=== PATIENT | female | born 1980 | race African-American/Black ===

== ENCOUNTER 2017-01-02 10:46 | Emergency (ER) | payer OTHER ==
[2017-01-02 10:27] LABS: INFLUENZA A NEG (NEG); INFLUENZA B NEG (NEG)
[~2017-01-02 10:46] MED LIST: ERYTHROMYCIN O3.5 G1 OD
== END 2017-01-02 10:56 | disposition home or self-care (01) ==
LOC: CED 10:46
PROVIDERS: Physician Assistant
DX: B34.9 Viral infection, unspecified (principal); J45.909 Unspecified asthma, uncomplicated; F17.210 Nicotine dependence, cigarettes, uncomplicated
CPT/HCPCS: 87651; 87804; 94640; 99283

== ENCOUNTER 2017-03-01 13:27 | Emergency (ER) | payer OTHER ==
[2017-03-01 12:41] LABS: HEMATOCRIT 40.9 % (35.0-45.0); HEMOGLOBIN 13.7 gm/dL (12.0-16.0); MEAN CELL VOLUME 97.1 FL (83-96); MEAN CORPUSCULAR HEMOGLOBIN 32.4 PG (28-34); MEAN CORPUSCULAR HGB CONC 33.4 g/dL (30-36); MEAN PLATELET VOLUME 7.3 FL (6.5-11.5); RED BLOOD COUNT 4.21 X10e (3.90-5.30); RED CELL DISTRIBUTION WIDTH 15.3 % (11.0-15.5); WHITE BLOOD COUNT 8.3 X10e3 (4.0-10.5)
[2017-03-01 13:06] LABS: CALCIUM SERUM 9.3 mg/dL (8.4-10.2); CREATININE SERUM 0.8 mg/dL (0.6-1.4); GLOM FILT RATE Estimated 110.8 mL/min (>60); POTASSIUM 3.4 mmol/L (3.5-5.1)
[2017-03-01 15:33] LABS: AMPHETAMINE POS (NEG); BARBITURATES NEG (NEG); BENZODIAZEPINES POS (NEG); COCAINE POS (NEG); MARIJUANA POS (NEG); OPIATES NEG (NEG); TRICYCLIC ANTIDEPRESSANTS NEG (NEG); U METHADONE NEG (NEG)
== END 2017-03-01 16:55 ==
LOC: CED 13:27
PROVIDERS: Emergency Medicine
DX: F14.10 Cocaine abuse, uncomplicated (principal); R45.851 Suicidal ideations
CPT/HCPCS: 36415; 80048; 80307; 84703; 85027; 96360; 99284

== ENCOUNTER 2017-03-01 14:00 | Inpatient (IN) | payer OTHER ==
--- NOTE | ~2017-03-01 | PA ---
Unit #: [id number] #: [id number] [facility]: [facility] [id number] [facility] [place] [address] [id number] I MR#: [id number] NAME: EDWIN OLIVA ROOM: P183 Age: 36 Sex: F Admission Date: 03/01/2017 : 1980 Date of Assessment: 03/01/2017 Attending Physician: Noel Barlow M.D. Admitting Physician: Noel Barlow M.D. Primary Care Physician: [facility]ana PSYCHIATRIC ASSESSMENT DATE OF SERVICE 03/01/2017. IDENTIFYING DATA Ms. Oliva is a 36-year-old, single, female, who is a resident of [place], [place] and was self-referred to the hospital on a voluntary basis. CHIEF COMPLAINT "I'm depressed and I'm using cocaine." HISTORY OF PRESENT ILLNESS Ms. Oliva is a 35-year-old, female, who was self-referred to the hospital and upon presentation, reports that she has been engaging in cocaine binge for the last 8 days and reports cocaine abuse leading to suicidal ideations and increasing depression, and the patient stated that she hopes the next line of cocaine will kill her and reports that she has a history of self-injurious behavior in the past and currently has been decompensated. She reports poor social support system being homeless and having financial stressors. The patient also reports increasing depression, anxiety, feelings of hopelessness and helplessness, and suicidal ideations and as such, recommendation for inpatient level of care for safety and stabilization was made. SUBSTANCE ABUSE HISTORY The patient reports history of experimentation with cannabis, but cocaine has been her drug of choice. She reports that she has been in an 8-day binge. PAST PSYCHIATRIC HISTORY The patient has had a history of inpatient psychiatric and chemical dependency treatment at [facility] in the past, and review of the medical records indicate that she was supposed to be on psychotropic medication, but has been noncompliant with medications and as such, has been decompensating. PAST MEDICAL HISTORY No acute or chronic medical illnesses. ALLERGIES No known medication allergies. PERSONAL AND SOCIAL HISTORY Unit #: [id number] #: [id number] Patient: EDWIN OLIVA A 36-year-old female, who reports that she is single, unemployed, and lives by herself and has poor social support system. MENTAL STATUS EXAMINATION Young female, who was casually dressed with fair personal hygiene, appears to be in no acute distress or discomfort. She was awake and alert on interaction with intact orientation to time, place, and person. Her mood was anxious and depressed with a congruent affect. Her speech was slow and goal directed. She reports having suicidal ideation, but denies any homicidal ideations, and also denies any auditory or visual hallucinations. Her insight and judgment remain significantly impaired. DIAGNOSTIC IMPRESSION Psychiatric: Major depressive disorder, recurrent, moderate, without psychotic features; cocaine dependence, moderate. Medical: None. Stressors: Moderate psychosocial stressors. TREATMENT PLAN 1. The patient has presented with a history of substance abuse and mood disorder, and has been decompensating and will need inpatient hospitalization for detoxification, safety, and stabilization. We will start her back on her home medications. We will adjust the medications and monitor response. 2. Supportive therapy was provided to the patient. 3. Safe, structured, and nourishing environment will be provided. ESTIMATED LENGTH OF STAY 4 to 5 days. ABILITY TO HELP SELF Limited. WILLINGNESS TO HELP SELF The patient appears to be willing to help self. STRENGTHS 1. Communicative. 2. Cooperative. PROBLEMS 1. Chronic dysphoric symptoms. 2. Chronic chemical dependency. 3. Poor social support system. DISCHARGE CRITERIA This will be contingent upon the patient's ability to go through detox without having any significant withdrawal symptoms as well as her ability to stay safe to herself, particularly after discharge from the hospital. Dictated by... Noel Barlow M.D. [facility]/tim Unit #: [id number] #: [id number] Patient: EDWIN OLIVA TD: 03/02/2017 07:04 JOB #: [id number] PSYCHIATRIC ASSESSMENT Page 1 of 1 X Noel Barlow MD PSYCHIATRIC ASSESSMENT
--- NOTE | ~2017-03-01 | PN ---
Unit #: [id number] #: [id number] Patient: EDWIN OLIVA [id number] [facility] [address] [place] [address] [id number] MR#: [id number] NAME: EDWIN OLIVA ROOM: [facility] Age: 36 Sex: F Admission Date: 03/01/2017 : 1980 Attending Physician: Noel Barlow M.D. Admitting Physician: Noel Barlow M.D. Primary Care Physician: [facility] Giovana ABBASI PROGRESS NOTES DATE 03/02/2017 DISCUSSION The patient is a 36-year-old female who was seen today and chart was reviewed and case was discussed with the staff. She has been anxious, withdrawn, depressed and seclusive to herself and in some distress and discomfort. Meanwhile, she has been cooperative with treatment recommendations and has been taking medications and tolerating them fairly well with no reported side effects. MENTAL STATUS EXAMINATION Young female who was casually dressed with fair personal hygiene and appears to be in no acute distress or discomfort. She was awake and alert on interaction with intact orientation. Her mood was anxious and depressed with congruent affect. She denies any current suicidal or homicidal ideations and also denies any auditory or visual hallucinations. Her insight and judgement remains slightly impaired. TREATMENT PLAN 1. Will continue on current medications and treatment protocol. Will monitor her response and make further adjustments as needed. 2. Will continue to follow up. Dictated by... Elinor Mckeon/brittany TD: 03/02/2017 23:16 JOB #: [id number] Unit #: [id number] #: [id number] Patient: EDWIN OLIVA PROGRESS NOTES Page 1 of 1 X Noel Barlow MD X PROGRESS NOTE
--- NOTE | ~2017-03-01 | HP ---
Unit #: [id number] #: [id number] Patient: EDWIN OLIVA [id number] [place] [address] [id number] I MR#: [id number] NAME: EDWIN OLIVA ROOM: 83 Age: 36 Sex: F Admission Date: 03/01/2017 : 1980 Attending Physician: Noel Barlow M.D. Admitting Physician: Noel Barlow M.D. Primary Care Physician: [facility] Giovana HISTORY AND PHYSICAL HISTORY OF PRESENT ILLNESS Edwin is a 36 year old admitted to [facility] because of her drug use. She uses cocaine. PAST MEDICAL HISTORY Long history of illicit substance abuse to include cocaine. PAST SURGICAL HISTORY Nothing reported. ALLERGIES No known drug allergies. SOCIAL HISTORY Smokes, drinks, alcohol, on occasion. Admits to a history of illicit substance abuse to include cocaine. FAMILY HISTORY Medically noncontributory. REVIEW OF SYSTEMS CONSTITUTIONAL: No fever or chills. HEENT: Denies any sore throat, ear pain or runny nose. CARDIOVASCULAR: Denies chest pain, irregular heart rhythm or palpitations. CHEST: Denies shortness of breath or cough. No hemoptysis. GASTROINTESTINAL: Denies nausea, vomiting, diarrhea or chronic constipation. ENDOCRINE: Denies history of increased thirst or urination. No recent significant weight loss or gain. GENITOURINARY: Denies dysuria, frequency, or hematuria. SKIN: Denies any rashes. HEMATOLOGIC: Denies history of increased bleeding or bruising. MUSCULOSKELETAL: Denies any hot, swollen joints. No generalized muscle pain. NEUROLOGIC: Denies problems with vision or speech. No frequent, severe headaches. No numbness, tingling or weakness in any extremities. Denies loss of bladder or bowel control. CURRENT MEDICATIONS 1. Seroquel 300 mg q.h.s. 2. Neurontin 300 mg b.i.d. 3. Vistaril 25 mg b.i.d. 4. Milk of Magnesia p.r.n. Unit #: [id number] #: [id number] Patient: EDWIN OLIVA 5. Maalox p.r.n. 6. Tylenol p.r.n. 7. Nicotine patch 14 mg q. day. PHYSICAL EXAMINATION GENERAL: Alert, well nourished. No apparent distress. VITAL SIGNS: Blood pressure 118/74, heart rate 52, respirations 16, and temperature 98.6. WEIGHT: 100. HEIGHT: 5 feet 3 inches. SKIN: Warm and dry without rash or lesion. HEENT: Normocephalic. TMs not viewed. Oral and nasal passages clear. Conjunctivae clear. PERRLA. EOMs intact. NECK: Supple without lymphadenopathy or thyromegaly. HEART: Regular rate and rhythm without murmur. LUNGS: Clear. ABDOMEN: Soft, nontender. : Not done. EXTREMITIES: No evidence of cyanosis, clubbing or edema. Moves all without focal deficit. NEUROLOGICAL: Grossly within normal limits. Cranial Nerves: II: Visual may are intact. III, IV AND : Extraocular movements are intact. Pupils are equal, round and reactive to light. V: Facial sensation is grossly normal. VII: Facial movements and expression are normal. VIII: Auditory acuity grossly intact. IX, X: Uvula is midline. Phonation is normal. XI: Patient shrugs shoulders and turns head normally. XII: Tongue protrudes in the midline. Sensory and Motor Function: Sensory and motor sensation is grossly normal. Motor: moves all extremities well. Coordination: Gait is normal. Deep Tendon Reflexes: Intact. IMPRESSION Psychiatric admission. RECOMMENDATIONS PSYCHIATRIC: Per psychiatrist. MEDICAL: I see no contraindication to participate in this facility's activities. MEDICAL PROGNOSIS Good. MEDICAL CONDITION Stable. Dictated by... Sun Loco P.A.-C. for Elinor Blum/marcelo TD: 03/02/2017 08:56 JOB #: [id number] Unit #: [id number] #: [id number] Patient: EDWIN OLIVA HISTORY AND PHYSICAL Page 1 of 1 X Sun Loco HISTORY AND PHYSICAL
--- NOTE | ~2017-03-01 | DS ---
Unit #: [id number] #: [id number] [facility] [id number] [facility] [address] [place] [address] [id number] MR#: [id number] NAME: EDWIN OLIVA ROOM: [facility] Age: 36 Sex: F Admission Date: 03/01/2017 : 1980 Discharge Date: 03/05/2017 Attending Physician: Noel Barlow M.D. Primary Care Physician: [facility] [place] DISCHARGE SUMMARY IDENTIFYING DATA Ms. Oliva is a 36-year-old female who is a resident of [place], [place] and was self-referred to the hospital. DISCHARGE DIAGNOSES Psychiatric: Major depressive disorder, recurrent, moderate, without psychotic features. Cocaine dependence, moderate. Medical: None. Stressors: Moderate psychosocial stressors. HISTORY OF PRESENT ILLNESS Please see initial psychiatric evaluation for details. PAST PSYCHIATRIC HISTORY Please see initial psychiatric evaluation for details. PAST MEDICAL HISTORY Please see initial psychiatric evaluation for details. HOSPITAL COURSE The patient was admitted to the adult chemical dependency unit at [facility] and was oriented to the hospital environment. Routine p.r.n. medications were initiated, and she was started on the detox protocol and was closely monitored. She was taking the medications regularly and was tolerating them fairly well and was able to show a decent therapeutic response and was willing to continue treatment on an outpatient basis. DISCHARGE MEDICATION Seroquel 300 mg at bedtime. DISCHARGE CONDITION Stable. PROGNOSIS Fair. Dictated by... Noel Barlow M.D. [facility]/modl Unit #: [id number] #: [id number] Patient: EDWIN OLIVA TD: 03/05/2017 07:34 JOB #: [id number] DISCHARGE SUMMARY Page 1 of 1 X Noel Barlow MD X DISCHARGE SUMMARY
--- NOTE | ~2017-03-01 | PN ---
Unit #: [id number] #: [id number] Patient: EDWIN OLIVA [id number] [facility] [address] [place] [address] [id number] I MR#: [id number] NAME: EDWIN OLIVA ROOM: [facility] Age: 36 Sex: F Admission Date: 03/01/2017 : 1980 Attending Physician: Noel Barlow M.D. Admitting Physician: Noel Barlow M.D. Primary Care Physician: [facility] Giovana DURANT NOTES DATE OF SERVICE 03/03/2017 DISCUSSION Ms. Oliva is a 36-year-old female with mood disorder who was seen today. Chart was reviewed and case was discussed with the staff. She has been anxious, withdrawn, and rather seclusive to herself. Meanwhile, she has been cooperative with the treatment recommendations and has been taking the medications and tolerating them fairly well with no reported side effects. MENTAL STATUS EXAMINATION Young female who is casually dressed with fair personal hygiene, appears to be in no acute distress or discomfort. The patient was awake and alert with impaired attention and concentration. Her mood is anxious with a congruent affect. She denies any suicidal or homicidal ideations. Her insight and judgment remain slightly impaired. TREATMENT PLAN 1. We will continue her on her current medications and treatment protocol. We will monitor her response to the medications and make further adjustments as needed. 2. We will continue to follow up. Dictated by... Noel Barlow M.D. [facility]/rachelg TD: 03/03/2017 11:24 JOB #: [id number] Unit #: [id number] #: [id number] Patient: EDWIN OLIVA PROGRESS NOTES Page 1 of 1 X Noel Barlow MD X PROGRESS NOTE
--- NOTE | ~2017-03-01 | PN ---
Unit #: [id number] #: [id number] Patient: EDWIN AVAOLS [id number] [facility] [address] [place] [address] [id number] MR#: [id number] NAME: EDWIN AVALOS ROOM: [facility] Age: 36 Sex: F Admission Date: 03/01/2017 : 1980 Attending Physician: Noel Barlow M.D. Admitting Physician: Noel Barlow M.D. Primary Care Physician: [facility] Giovana DURANT NOTES DATE 03/04/2017 DISCUSSION Ms. Avalos is a 36-year-old female who was seen today and chart was reviewed and case was discussed with the staff. She has been anxious, withdrawn and rather seclusive to herself. Meanwhile, she has been cooperative with treatment recommendations as she has been taking the medications and tolerating them fairly well with no reported side effects. MENTAL STATUS EXAMINATION Young female who was casually dressed with fair personal hygiene, appears to be in no acute distress or discomfort. She was awake and alert on interaction with intact orientation. Her mood was anxious and depressed with congruent affect. She denies any suicidal or homicidal ideations. Also, denies any auditory or visual hallucinations. Her insight and judgement remains slightly impaired. TREATMENT PLAN 1. We will continue her on her current medications and treatment protocol. We will monitor her response to the medication and make further adjustments as needed. 2. We will continue to follow up. Dictated by... Elinor Mckeon/zarina TD: 03/04/2017 22:29 JOB #: [id number] Unit #: [id number] #: [id number] Patient: EDWIN AVALOS PROGRESS NOTES Page 1 of 1 X Noel Barlow MD PROGRESS NOTE
--- NOTE | ~2017-03-01 | A ---
[facility] Nutrition Therapy DATE: 03/03/17 Patient: EDWIN OLIVA Physician: TERRA Address: [address] Room/Bed: [address], Zip: [place] [address] Admit Date: 03/01/17 Date of : [birth year] Height: 5 3 Weight: 99 45.3592 NUTRITIONAL ASSESSMENT: REASON: LOW BMI (17.7) PATIENT ADMITTED FOR COCAINE ABUSE AND SI PMH: NONE Anthropometrics: HT: 5'3", WT: 100#, BMI: 17.7 Labs: 03/03/17- ALB: 3.4, ALL OTHER NUTRITIONAL LABS WNL Meds: SEROQUEL, NEURONTIN, VISTARIL Assessment: PATIENT IS A 36 Y/O FEMALE ADMITTED FOR COCAINE ABUSE AND SI. PATIENT IS CURRENTLY ON DISABILITY, HOMELESS, SMOKES 1/2 PPD, AND HAS A HX OF COCAINE AND MARIJUANA USE. IT IS NOTED THAT PATIENT WENT ON A COCAINE BINGE FOR 8 DAYS PRIOR TO ADMIT, AND HAD NOT BEEN EATING OR SLEEPING. PATIENT HAS A HX OF INPATIENT PSYCH AND CHEMICAL DEPENDENCY TREATMENT, AND HAS BEEN NON-COMPLIANT WITH MEDICATIONS. PER NEEDS ASSESSMENT PATIENT STATED A POOR APPETITE AND HAD NOT BEEN SLEEPING. NURSING REPORTED THAT PATIENT REFUSED BREAKFAST YESTERDAY D/T BEING UNHAPPY WITH HER PORTION SIZE. SHE STATED SHE WAS DETOXING AND HAD INCREASED IRRITABILITY. HER PORTION SIZES HAVE SINCE BEEN INCREASED AND SHE HAS HAD GOOD PO INTAKES. PATIENT'S TOX SCREEN WAS POSITIVE FOR BENZOS, COCAINE, AMPHETAMINES, AND MARIJUANA. PATIENT'S CURRENT PSYCH MEDS MAY CAUSE AN INCREASE IN WEIGHT AND APPETITE. PATIENT IS ON A REGULAR DIET WITH LARGE PORTION ENTREES. THERE ARE NO SKIN OR GI ISSUES NOTED ATT. Dx: INADEQUATE NUTRIENT INTAKE R/T CURRENT CONDITION, DRUG USE AEB NOT EATING PRIOR TO ADMIT, LOW BMI Intervention: REGULAR DIET, LARGE PORTIONS, MEDS PER MD, PSYCH Monitoring, Evaluation and Goals: 1. ADEQUATE PO INTAKES >50% OF MEALS 2. PREVENT, CORRECT MICRO/MACRO NUTRIENT DEFICIENCIES 3. WEIGHT; PROMOTE A STEADY WEIGHT GAIN TOWARDS A HEALTHY BMI (19-25), AND PREVENT WEIGHT LOSS MONITOR: WEIGHTS, LABS, PO/FLUID INTAKES Recommendations: [facility] Nutrition Therapy DATE: 03/03/17 Patient: EDWIN OLIVA Physician: TERRA Address: [address] Room/Bed: [address], Zip: [place] [address] Admit Date: 03/01/17 Date of : [birth year] Height: 5 3 Weight: 99 45.3592 1. CONTINUE REGULAR DIET WITH LARGE PORTION ENTREES. OFFER SNACKS BETWEEN MEALS. IF CONTINUES TO HAVE C/O HUNGER PATIENT MAY RECEIVE LARGER PORTIONS OF FRUITS AND VEGETABLES, AND MAY HAVE ENSURE BID (NEEDS MD ORDER) 2. ENCOURAGE ADEQUATE PO AND FLUID INTAKES 3. WEIGH PATIENT ROUTINELY (EVERY 3-4 DAYS) RD TO F/U PER PROTOCOL AND PRN R/T PATIENT MILDLY COMPROMISED Respectfully, HERBIE LOCO, VICTORINO, LD [facility] cc: client file
[2017-03-03 10:03] LABS: URINE APPEARANCE CLOUDY; URINE BILIRUBIN NEG (NEG); URINE BLOOD TRACE (NEG); URINE COLOR YELLOW; URINE GLUCOSE NEG (NEG); URINE KETONE NEG (NEG); URINE LEUKOCYTE ESTERASE NEG (NEG); URINE NITRATE NEG (NEG); URINE PROTEIN NEG (NEG); URINE SPECIFIC GRAVITY 1.026 (1.003-1.035)
[2017-03-03 10:09] LABS: U HYALINE CASTS AUWI 0-2 /[LPF]; URINE BACTERIA AUWI 1+ (NEGATIVE); URINE SQUAMOUS EPITHELIAL CELL MOD /[HPF]
[2017-03-03 10:20] LABS: ALBUMIN SERUM 3.4 g/dL (3.5-5.0); BILIRUBIN,TOTAL 0.5 mg/dL (0.2-2.0); BUN/CREATININE RATIO 12.5; CALCIUM SERUM 8.6 mg/dL (8.4-10.2); CREATININE SERUM 0.8 mg/dL (0.6-1.4); GLOM FILT RATE Estimated 110.8 mL/min (>60)
[2017-03-03 11:20] LABS: AMPHETAMINE POS (NEG); BARBITURATES NEG (NEG); BENZODIAZEPINES POS (NEG); COCAINE POS (NEG); MARIJUANA POS (NEG); OPIATES NEG (NEG); TRICYCLIC ANTIDEPRESSANTS POS (NEG); U METHADONE NEG (NEG)
== END 2017-03-05 10:02 | disposition home or self-care (01) | DRG 885 ==
LOC: P1E 17:29
PROVIDERS: Psychiatry & Neurology Psychiatry
PROC: HZ2ZZZZ Detoxification Services for Substance Abuse Treatment (ICD-10-PCS; principal; 2017-03-01)
DX: F33.1 Major depressive disorder, recurrent, moderate (principal); F14.20 Cocaine dependence, uncomplicated; F17.210 Nicotine dependence, cigarettes, uncomplicated
CPT/HCPCS: 80053; 80307; 81003; 84703